=== PATIENT | male | born 1980 | race Caucasian/White ===

== ENCOUNTER → 2019-04-02 | Outpatient (CLI) | payer BC | LOC: RAD 18:57 | DX: M79.671 Pain in right foot (principal) ==

== ENCOUNTER → 2020-01-27 | Outpatient (CLI) | payer BC | LOC: RAD 15:45 → VAS 15:47 | DX: I34.0 Nonrheumatic mitral (valve) insufficiency (principal); Z72.89 Other problems related to lifestyle ==

== ENCOUNTER → 2020-01-31 | Outpatient (CLI) | payer BC | LOC: CARDREHAB 08:46 → CARDLAB 09:31 | DX: I49.9 Cardiac arrhythmia, unspecified (principal); Z72.89 Other problems related to lifestyle | CPT/HCPCS: A9500 ==

== ENCOUNTER → 2021-01-11 | Outpatient (CLI) | payer OTHER ==
[2021-01-11 14:12] LABS: BASO # 0.04 K/mm3 (0.02-0.10); EOS # 0.48 K/mm3 (0.04-0.40); EOS % 6.2 % (0.0-4.0); HEMATOCRIT 42.7 % (42.0-52.0); HEMOGLOBIN 14.8 g/dL (13.5-18.0); LYMPH# 1.75 K/mm3 (1.50-4.00); MEAN CELL VOLUME 95 fl (78-100); MEAN CORPUSCULAR HEMOGLOBIN 33 pg (27-31); MEAN CORPUSCULAR HGB CONC 35 g/dL (33-37); MEAN PLATELET VOLUME 9.9 fl (7.4-10.4); MONO # 0.45 K/mm3 (0.20-0.80); PLATELET COUNT 194 K/mm3 (130-400); RED BLOOD COUNT 4.49 M/mm3 (4.20-5.60); RED CELL DISTRIBUTION WIDTH 11.3 % (11.5-14.5); WHITE BLOOD COUNT 7.7 K/mm3 (4.8-10.8)
[2021-01-11 14:17] LABS: ALBUMIN 4.2 g/dL (3.5-5.0); POTASSIUM 3.8 mmol/L (3.5-5.1)
[2021-01-11 14:18] LABS: CALCIUM 9.9 mg/dL (8.3-10.5)
[2021-01-11 14:19] LABS: TOTAL PROTEIN 7.2 g/dL (6.4-8.3)
[2021-01-11 15:30] LABS: ERYTHROCYTE SEDIMENTATION RATE 4 mm/hr (0-15)
== END ==
LOC: LAB 13:57
PROVIDERS: Nurse Practitioner
DX: M25.429 Effusion, unspecified elbow (principal)